=== PATIENT | male | born 1960 | race Caucasian/White ===

== ENCOUNTER 2016-09-20 12:18 | Outpatient (CLI) | payer BC ==
[~2016-09-20 12:18] MED LIST: AMITRIPTYLINE H25 MG PO; DOCUSATE SODIU100 MG PO; ENTERIC COATED325 M1 PO; FERROUS SULFAT324 M1 PO; HYDROXYZINE PAM25 MG PO; IBUPROFEN600 MG PO; LORAZEPAM1 MG PO; PERCOCET1 TA1 PO; VITAMIN C500 M1 PO; VITAMIN D PO
--- NOTE | 2016-09-20 13:19 | DIAGNOSTIC IMAGING REPORT ---
PROCEDURE: XR HAND 3 OR 4 VIEWS - RIGHT INDICATION: RIGHT HAND PAIN TECHNIQUE: Four views. COMPARISON: Right hand x-ray 11/05/2013 FINDINGS: Severe degenerative changes of the first carpometacarpal, second and third MCP joints with mild degenerative changes of the first MCP, second PIP and DIP joints. Old fracture of the left fifth distal tuft. Soft tissues are unremarkable. IMPRESSION: 1. No acute changes 2. Moderate to severe degenerative changes, unchanged.
== END 2016-09-20 23:00 ==
LOC: XR SRH 12:18
DX: M19.041 Primary osteoarthritis, right hand (principal)